=== PATIENT | male | born 1990 | race Caucasian/White ===

== ENCOUNTER 2019-01-17 07:18 | Day surgery (SDC) | payer OTHER ==
[~2019-01-17] VITALS: Ht 198.1 cm; Wt 130.0 kg
[~2019-01-17 07:18] MED LIST: DOXE10
== END 2019-01-17 10:03 | disposition home or self-care (01) ==
LOC: ORSCSDS 07:18
PROVIDERS: Internal Medicine Gastroenterology
PROC: 06LY4CC Occlusion of Hemorrhoidal Plexus with Extraluminal Device, Percutaneous Endoscopic Approach (ICD-10-PCS; principal; 2019-01-17 08:45)
DX: K62.5 Hemorrhage of anus and rectum (principal); F41.8 Other specified anxiety disorders; K64.8 Other hemorrhoids; Z79.899 Other long term (current) drug therapy
CPT/HCPCS: J2250; J2704; J7120